=== PATIENT | female | born 1940 | race Caucasian/White ===

== ENCOUNTER 2023-10-17 10:10 | Inpatient (IN) ==
[2023-10-17 11:07] LABS: ABS Lymphocytes 0.3 10^3/uL (1.0-4.8); ABS Monocytes 0.7 10^3/uL (0.0-0.9); ABS Neutrophils 4.6 10^3/uL (1.5-7.6); Eosinophil % 0.2 %; Hematocrit 35.4 % (35-45); Hemoglobin 12.2 g/dL (11.5-14.3); Lymphocyte % 5.3 %; Mean Corpuscular Hgb Conc 34.5 g/dL (31-36); Mean Corpuscular Volume 95.6 fL (80-97); Mean Platelet Volume 7.5 fL (7.5-11.2); Platelet Count 173 10^3/uL (150-450); Red Cell Distribution Width 14.8 % (12-17); White Blood Count 5.6 10^3/uL (3.8-11.8)
[2023-10-17 11:21] LABS: INR 1.06 (0.83-1.13)
[2023-10-17 12:02] LABS: Albumin 3.9 g/dL (3.2-5.2); Calcium 9.4 mg/dL (8.6-10.3); Creatinine, Serum 0.87 mg/dL (0.51-0.95); Potassium 3.9 mmol/L (3.5-5.0); Total Bilirubin 0.5 mg/dL (0.2-1.0); Total Protein 5.9 g/dL (6.4-8.9); eGFR CKD-EPI 66.1 (>60)
[2023-10-17 12:32] LABS: High Sensitivity Troponin 1 Hr 18 pg/mL (<15)
[2023-10-17] MEDS ORDERED: Al Hydrox/Mg Hydrox/Simet LIQ 30 ML UDC PO PRN (13:12)
[2023-10-17] MEDS: cefTRIAXone 1 gm/50 mL D5W 1 GM/50 ML BAG IV ONE (13:39)
[2023-10-17] MEDS: Azithromycin 500 mg/250 ml NS 500 MG/250 ML BAG IVPB ONE (14:49)
[2023-10-17] MEDS: Enoxaparin 40 MG/0.4 ML SYR SUBCUT SCH (15:48)
[2023-10-17] MEDS: Remdesivir 100 mg Vial 200 MG in NS 0.9% 250 ml 210 ML IV ONE (16:31)
[2023-10-18 06:18] LABS: ABS Lymphocytes 0.4 10^3/uL (1.0-4.8); ABS Monocytes 0.6 10^3/uL (0.0-0.9); ABS Neutrophils 2.7 10^3/uL (1.5-7.6); Hematocrit 36.8 % (35-45); Hemoglobin 12.3 g/dL (11.5-14.3); Lymphocyte % 9.9 %; Mean Corpuscular Hemoglobin 32.3 pg (27-33); Mean Corpuscular Hgb Conc 33.4 g/dL (31-36); Mean Corpuscular Volume 96.5 fL (80-97); Mean Platelet Volume 7.8 fL (7.5-11.2); Nucleated Red Blood Cells % 0.1 %/100WBC (0.0-0.8); Platelet Count 150 10^3/uL (150-450); Red Blood Count 3.82 10^6/uL (3.63-4.92); Red Cell Distribution Width 14.8 % (12-17); White Blood Count 3.7 10^3/uL (3.8-11.8)
[2023-10-18 06:28] LABS: INR 1.07 (0.83-1.13)
[2023-10-18 07:00] LABS: Albumin 3.7 g/dL (3.2-5.2); Albumin/Globulin Ratio 2.2 (1-3); Creatinine, Serum 0.73 mg/dL (0.51-0.95); Globulin 1.7 g/dL (2-4); Potassium 3.9 mmol/L (3.5-5.0); Total Bilirubin 0.3 mg/dL (0.2-1.0); Total Protein 5.4 g/dL (6.4-8.9); eGFR CKD-EPI 81.5 (>60)
[2023-10-18] MEDS: Aspirin EC 81 mg TAB.EC (enteric coated) PO SCH (09:32)
[2023-10-18] MEDS ORDERED: Remdesivir 100 mg Vial 100 MG in NS 0.9% 250 ml 230 ML IV SCH ×2 (20:00→21:00)
[2023-10-18] MEDS: Remdesivir 100 mg Vial 100 MG in NS 0.9% 250 ml 230 ML IV SCH (20:30)
[2023-10-19 06:39] LABS: INR 1.05 (0.83-1.13)
[2023-10-19 06:53] LABS: Albumin 3.5 g/dL (3.2-5.2); Albumin/Globulin Ratio 2.2 (1-3); Calcium 8.8 mg/dL (8.6-10.3); Creatinine, Serum 0.74 mg/dL (0.51-0.95); Globulin 1.6 g/dL (2-4); Potassium 3.8 mmol/L (3.5-5.0); Total Bilirubin 0.3 mg/dL (0.2-1.0); Total Protein 5.1 g/dL (6.4-8.9); eGFR CKD-EPI 80.2 (>60)
[2023-10-19 13:53] VITALS: BP 131/70
== END 2023-10-19 15:10 | disposition home or self-care (01) | DRG 177 ==
LOC: ED 10:10 → EDHOLD 10:10 → OBSVTOIN 13:12 → MED 17:21
PROVIDERS: ADMIT Internal Medicine; ATTEND Internal Medicine